=== PATIENT | male | born 1955 | race Caucasian/White ===

== ENCOUNTER → 2021-02-27 | Outpatient (CLI) | payer OTHER ==
[~2021-02-27] MED LIST: ABILIFY 5 MG TAB5 M1 PO; LUNESTA3 MG PO; SEROQUEL 50 MG50 MG PO; ZOLOFT100 MG PO
== END ==
LOC: M.LAB 09:26
PROVIDERS: ATTEND Anesthesiology
DX: Z01.812 Encounter for preprocedural laboratory examination (principal); Z20.822 Contact with and (suspected) exposure to COVID-19